=== PATIENT | male | born 2000 | race Hispanic/Latino ===

== ENCOUNTER → 2023-10-19 16:57 | Outpatient (REF) | payer BC, SELFPAY | LOC: RAD 16:57 | PROVIDERS: ATTENDING PHYSICIAN Family Medicine | DX: M54.9 Dorsalgia, unspecified (principal) | CPT/HCPCS: 72072; 72100 ==

== ENCOUNTER 2024-02-12 23:31 | Emergency (ER) | payer BC, SELFPAY ==
[2024-02-12 23:34] VITALS: BP 158/104
--- NOTE | 2024-02-13 02:44 | ED.GENMED ---
History of Present Illness
General
Chief Complaint: Back Pain
Source: patient and family
Exam Limitations: none
Time Seen by Provider: 02/13/24 02:21
Nursing documentation reviewed up to this point in time: agreed with
Travel History
Have you had any contact with someone who has COVID-19?: No
Do you have any symptoms of coronavirus? Fever > 100 degrees, chills, cough, shortness of breath, sore throat, loss of taste or smell, muscle aches, or headache?: No
History of Present Illness
History of Present Illness:
23-year-old male presents emerged from complaining of mid back pain, which she has had before. He was throwing a football when the pain came on. He has been taking Flexeril for it, which does not seem to help. He did not take any medications
before coming to the hospital.
Past History
Past History
ED Past Medical History: Asthma and GERD
ED Past Surgical History: None
Social History
Tobacco: Non-smoker
Drug: None
Living: with family
Review of Systems
Review of Systems
Allergies reviewed?: Yes
All Other Systems: Not applicable
Constitutional: Reports no symptoms
EENT: Reports no symptoms
Respiratory: Reports no symptoms
Cardiac: Reports no symptoms
ABD/GI: Reports no symptoms
: Reports no symptoms
Musculoskeletal: Reports back pain
Skin: Reports no symptoms
Neurological: Reports no symptoms
Endocrine: Reports no symptoms
Hematologic/Lymphatic: Reports no symptoms
Psychiatric: Reports no symptoms
Phy Exam
Physical Exam
Physical Exam:
Physical Exam
General: no apparent distress, not acutely ill
Neck: supple. no meningeal signs. normal posterior pharynx
Heart: equal radial pulses.
HEENT: Pupils equal round reactive to light, EOMI
Lungs: no acute respiratory distress.
Abdomen: normal bowel sounds. not tender. no CVAT
Neuro: alert and oriented. no focal neurological deficits cranial nerves II through XII intact
Skin: no rash
Psychiatric: well kept. interactive and cooperative
Extremities: no edema. no calf tenderness. negative homans. good distal pulses
Course
Orders/Labs/Results
Orders:
Orders
02/13/24 02:44
Ketorolac [Toradol] 15 mg IM NOW STA
Vital Signs
Initial and Last Documented VS:
Initial Vital Signs
Temp Pulse Resp BP Pulse Ox
98.9 F 98 24 158/104 98
02/12/24 23:34 02/12/24 23:34 02/12/24 23:34 02/12/24 23:34 02/12/24 23:34
Last Documented Vital Signs
Temp Pulse Resp BP Pulse Ox
98.9 F 68 18 141/84 100
02/12/24 23:34 02/13/24 02:52 02/13/24 02:52 02/13/24 02:52 02/13/24 02:52
MDM/Problems Addressed
Differential Diagnosis Includes:
Fracture, pneumonia, PE
MDM/Problems Addressed:
23-year-old male with mid back pain, worse with range of motion. Improved after IM Toradol. Doubt PE or dissection. Patient stable for discharge. Follow-up with [facility] spinal physician.
*Pulse Oximetry
Patient hypoxic: no
*EKG
Interpreted by ED Provider?: NA
*Welding Supervisor Interpretation
Rate: Welding Supervisor- N/A
*Critical Care Note
Total Time (30-74mins, 75-104mins- exclusive of procedures): Not Applicable
Data Reviewed
Review of Other/Old Records Reveals: Radiology Studies (Prior spine x-ray shows scoliosis, no other acute findings)
Source: records
Further Testing Considered But Not Given:
MRI not indicated, no signs cauda equina
Patient Management
Escalation/DeEscalation of care consider admission/obs:
Admit not indicated
ED Attending Note
-
Portions of this chart may have been created with voice recognition software.� Occasional wrong word or��sound alike� substitutions may have occurred due to the inherent limitations of voice recognition software.
Discharge Plan
Departure
Patient Disposition: Home (Routine Discharge)
Date of Disposition: 02/13/24
Time of Disposition: 04:49
Patient with high blood pressure during this ER visit?: Yes
Condition: Good
Discharge Problem:
Acute thoracic back pain
Instructions: Upper Back Pain (DC), BLOOD PRESSURE
Prescriptions:
No Action
albuterol 90 mcg/actuation Aerosol
90 mcg INHALATION 4-8XD PRN (Reason: asthma)
cetirizine 10 mg Tablet
10 mg PO DAILY
budesonide-formoterol [Symbicort] 80-4.5 mcg/actuation Hfa Aerosol Inhaler
2 puff INHALATION BID
Referrals:
Kat Weller, DO [Family Provider] - Call in 1-3 days for appt
Activity Restrictions/Additional Instructions:
Use ibuprofen 800 mg every 8 hours as needed for pain. Follow-up with spinal physician. Return for any concerns
Interventions
Interventions:
*Risk Screen - Suicide Last Done: 02/12/24 23:34
*General Assessment Last Done: 02/13/24 02:11
*Neglect/Abuse Screening Last Done: 02/12/24 23:34
ED- Fall Risk Assessment Last Done: 02/13/24 02:11
*ED COVID-19 Vaccine History Last Done: 02/13/24 02:11
ED-Musculoskeletal Assessment Last Done: 02/13/24 02:01
Discharge Date and Time
Print Language: INDIAN
[2024-02-13] MEDS: TORADOL 15 MG IM (02:48)
[2024-02-13 02:52] VITALS: BP 141/84
[2024-02-13 03:08] VITALS: BMI 29.1
[2024-02-13 04:48] VITALS: BP 118/75
== END 2024-02-13 04:53 | disposition home or self-care (01) ==
LOC: EMR 23:31
PROVIDERS: EMERGENCY PHYSICIAN Emergency Medicine; FAMILY PHYSICIAN Family Medicine
DX: M54.6 Pain in thoracic spine (principal); J45.909 Unspecified asthma, uncomplicated; K21.9 Gastro-esophageal reflux disease without esophagitis
CPT/HCPCS: 99282; 96372

== ENCOUNTER → 2024-02-14 12:40 | Outpatient (REF) | payer BC, SELFPAY ==
[2024-02-16 08:04] LABS: Thyroglobulin Antibodies <0.9 IU/mL (0.0-4.0); Thyroid Peroxidase Ab (TPO) 0.3 IU/mL (0.0-9.0)
== END ==
LOC: RAD 12:40
PROVIDERS: ATTENDING PHYSICIAN Otolaryngology; FAMILY PHYSICIAN Family Medicine; REFERRING PHYSICIAN Internal Medicine Critical Care Medicine
DX: R06.09 Other forms of dyspnea (principal); E06.9 Thyroiditis, unspecified
CPT/HCPCS: 36415; 71046; 86376; 86800

== ENCOUNTER → 2024-02-16 | Outpatient (REF) | payer BC, SELFPAY | LOC: DHSLP | PROVIDERS: ATTENDING PHYSICIAN Internal Medicine Critical Care Medicine; FAMILY PHYSICIAN Family Medicine | DX: G47.30 Sleep apnea, unspecified (principal); R06.83 Snoring | CPT/HCPCS: 95800 ==

== ENCOUNTER → 2024-03-06 08:09 | Outpatient (REF) | payer BC, SELFPAY | LOC: RAD 08:09 | PROVIDERS: ATTENDING PHYSICIAN Otolaryngology; FAMILY PHYSICIAN Family Medicine | DX: E06.9 Thyroiditis, unspecified (principal) | CPT/HCPCS: 76536 ==

== ENCOUNTER → 2024-04-27 08:30 | Outpatient (REF) | payer BC, SELFPAY | LOC: RST 08:30 | PROVIDERS: ATTENDING PHYSICIAN Internal Medicine Gastroenterology; FAMILY PHYSICIAN Family Medicine | DX: R13.14 Dysphagia, pharyngoesophageal phase (principal) | CPT/HCPCS: 74221 ==